=== PATIENT | male | born 2000 | race Caucasian/White ===

== ENCOUNTER 2019-07-02 11:39 | Outpatient (CLI) | payer BC ==
[2019-07-02] VITALS (18 sets, daily range): BP systolic 95–136; BP diastolic 62–79
== END 2019-07-02 23:59 | disposition home or self-care (01) ==
LOC: CARD DIAG 11:39
PROVIDERS: ATTEND Internal Medicine Interventional Cardiology
DX: R55 Syncope and collapse (principal); R00.1 Bradycardia, unspecified; R53.83 Other fatigue
CPT/HCPCS: 93660